=== PATIENT | female | born 1955 ===

== ENCOUNTER → 2019-01-05 13:57 | Outpatient (REF) | payer OTHER, SELFPAY ==
[2019-01-05 14:36] LABS: Alanine Aminotransferase 33 IU/L (9-52); Albumin 4.3 g/dL (3.5-5.0); Albumin Globulin Ratio 1.5 (1.0-2.8); Alkaline Phosphatase 75 U/L (38-126); Aspartate Aminotransferase 24 IU/L (14-36); BUN Creatinine Ratio 34.3 (6-22); Bilirubin Total 0.4 mg/dL (0.2-1.3); Blood Urea Nitrogen 24 mg/dL (7-17); Calcium 9.3 mg/dL (8.4-10.2); Carbon Dioxide 28 mmol/L (22-32); Chloride 105 mmol/L (98-107); Cholesterol 251 mg/dL (140-199); Estimated Glomerular Filt Rate > 60.0 mL/min (>60); Globulin 2.9 g/dL (1.7-4.1); Glucose 86 mg/dL (80-110); HDL Cholesterol 68 mg/dL (40-60); HEMOLYSIS < 15 (0-50); LDL Cholesterol Calculated 163 mg/dL (<100); Sodium 142 mmol/L (137-145); Total Protein 7.2 g/dL (6.3-8.2); Triglycerides 99 mg/dL (35-150)
[2019-01-05 14:37] LABS: Potassium 5.5 mmol/L (3.4-5.1)
== END ==
LOC: LAB 13:57
PROVIDERS: Visit Provider Family Medicine
DX: Z13.6 Encounter for screening for cardiovascular disorders (principal); Z13.1 Encounter for screening for diabetes mellitus; Z13.228 Encounter for screening for other metabolic disorders
CPT/HCPCS: 36415; 80053; 80061